=== PATIENT | female | born 1985 | race Caucasian/White ===

== ENCOUNTER 2023-01-19 15:21 | Emergency (ER) | payer OTHER ==
[~2023-01-19] VITALS: Ht 157.5 cm; Wt 104.3 kg
[2023-01-19 15:34] VITALS: BP 145/72
[2023-01-19] MEDS ORDERED: ROB PO (17:50)
[2023-01-19] MEDS ORDERED: DIPH25TA53 PO (17:50)
[2023-01-19] MEDS ORDERED: ALBU0.0912 INH (17:52)
--- NOTE | 2023-01-19 18:42 | NUR ---
DISCHARGE INSTRUCTIONS NOT GIVEN TO PATIENT. NOTIFIED. PT. LEFT BEFORE PT. RECEIVED INSTRUCTIONS
== END 2023-01-19 18:39 | disposition home or self-care (01) ==
LOC: MED 15:21
DX: J06.9 Acute upper respiratory infection, unspecified (principal); J45.909 Unspecified asthma, uncomplicated; Z79.899 Other long term (current) drug therapy
CPT/HCPCS: 99283